=== PATIENT | female | born 1945 | race Hispanic/Latino ===

== ENCOUNTER 2024-07-27 17:38 | Emergency (ER) | payer MEDICARE ==
[~2024-07-27] VITALS: Ht 152.4 cm; Wt 66.7 kg
[~2024-07-27 17:38] MED LIST: ARICEPT5 MG PO; ASPIRIN81 MG PO; JARDIANCE10 MG PO; LIPITOR20 MG PO; LOSARTAN POTAS100 MG PO; LYRICA100 MG PO; VITAMIN D350 MCG
[2024-07-27 18:14] VITALS: TEMP 98.1
[2024-07-27 18:42] LABS: BASOPHILS % 0.5 % (0.0-1.0); EOSINOPHILS # (AUTO) 0.1 (0.0-0.4); EOSINOPHILS % 2.1 % (0.0-6.0); HEMATOCRIT 39.6 % (34.2-44.1); HEMOGLOBIN 12.1 g/dL (12.0-16.0); LYMPHOCYTES # (AUTO) 2.2 (1.0-3.2); LYMPHOCYTES % 38.8 % (18.0-39.1); MEAN CORPUSCULAR HEMOGLOBIN 26.7 pg (28-32); MEAN CORPUSCULAR HGB CONC 30.6 g/dL (31-35); MEAN CORPUSCULAR VOLUME 87.2 fL (81-99); MONOCYTES # (AUTO) 0.6 (0.2-0.8); MONOCYTES % 9.9 % (4.4-11.3); NEUTROPHILS # (AUTO) 2.8 (2.1-6.9); NEUTROPHILS % 48.5 % (38.7-80.0); PLATELET COUNT 165 x10e3/uL (140-360); RED BLOOD COUNT 4.54 x10e6/uL (3.6-5.1); RED CELL DISTRIBUTION WIDTH 14.1 % (11.7-14.4); WHITE BLOOD COUNT 5.78 x10e3/uL (4.8-10.8)
[2024-07-27 18:50] VITALS: RESP 18
[2024-07-27 19:03] LABS: ALBUMIN 3.5 g/dL (3.5-5.0); ALBUMIN/GLOBULIN RATIO 1.3 (0.8-2.0); ANION GAP 15.3 mmol/L (8-16); BILIRUBIN,TOTAL 0.5 mg/dL (0.2-1.2); CALCIUM 9.3 mg/dL (8.4-10.2); CREATININE, SERUM 1.77 mg/dL (0.57-1.11); POTASSIUM 4.3 mmol/L (3.5-5.1); TOTAL PROTEIN 6.3 g/dL (6.5-8.1)
[2024-07-27 19:26] LABS: CLARITY,URINE CLEAR (CLEAR); COLOR,URINE YELLOW (YELLOW)
[2024-07-27 19:27] LABS: BILIRUBIN,URINE NEGATIVE (NEGATIVE); GLUCOSE, URINE 500 (NEGATIVE); KETONES,URINE NEGATIVE (NEGATIVE); LEUKOCYTE ESTERASE ,URINE NEGATIVE (NEGATIVE); NITRITE,URINE NEGATIVE (NEGATIVE); PH,URINE 5.5 (5 - 7); PROTEIN,URINE DIPSTICK NEGATIVE (NEGATIVE); URINE UROBILINOGEN 0.2 mg/dL (0.2 - 1)
[2024-07-27 19:35] LABS: BACTERIA,URINE RARE /HPF; EPITHELIAL CELLS,URINE RARE /LPF; RBC,URINE 0-5 /HPF (0-5); WBC,URINE (MAN) 0-5 /HPF (0-5)
[2024-07-27 20:00] VITALS: PULSE 61
[2024-07-27] MEDS ORDERED: AUGMENTIN 500-1 EACH PO (20:13)
[2024-07-27 20:32] VITALS: BP 154/58; O2SAT 98
== END 2024-07-27 20:33 | disposition home or self-care (01) ==
LOC: ER 17:46
DX: N39.0 Urinary tract infection, site not specified (principal); Z85.53 Personal history of malignant neoplasm of renal pelvis
CPT/HCPCS: 36415; 80053; 81001; 85025; 87086; 99284

== ENCOUNTER 2024-07-30 09:36 | Inpatient (IN) | payer MEDICARE ==
[2024-07-27 14:18] LABS: BASOPHILS % 0.4 % (0.0-1.0); EOSINOPHILS # (AUTO) 0.1 (0.0-0.4); EOSINOPHILS % 1.8 % (0.0-6.0); HEMATOCRIT 43.3 % (34.2-44.1); LYMPHOCYTES # (AUTO) 2.5 (1.0-3.2); LYMPHOCYTES % 37.5 % (18.0-39.1); MEAN CORPUSCULAR HEMOGLOBIN 27.1 pg (28-32); MEAN CORPUSCULAR VOLUME 90.2 fL (81-99); MONOCYTES # (AUTO) 0.8 (0.2-0.8); MONOCYTES % 11.8 % (4.4-11.3); NEUTROPHILS # (AUTO) 3.2 (2.1-6.9); NEUTROPHILS % 48.4 % (38.7-80.0); PLATELET COUNT 181 x10e3/uL (140-360); RED CELL DISTRIBUTION WIDTH 14.1 % (11.7-14.4); WHITE BLOOD COUNT 6.69 x10e3/uL (4.8-10.8)
[2024-07-27 14:42] LABS: ALBUMIN 3.9 g/dL (3.5-5.0); ALBUMIN/GLOBULIN RATIO 1.3 (0.8-2.0); ANION GAP 19.6 mmol/L (8-16); BILIRUBIN,TOTAL 0.6 mg/dL (0.2-1.2); CALCIUM 10.3 mg/dL (8.4-10.2); CREATININE, SERUM 1.89 mg/dL (0.57-1.11); TOTAL PROTEIN 6.9 g/dL (6.5-8.1)
[2024-07-27 14:59] LABS: POTASSIUM 6.6 mmol/L (3.5-5.1)
[~2024-07-30] VITALS: Ht 154.9 cm; Wt 65.8 kg
[2024-07-30] VITALS (32 sets, daily range): BP systolic 95–124; BP diastolic 43–83; PULSE 46–108; RESP 9–25; TEMP 97.7–98.7; O2SAT 91–100
[~2024-07-30 09:36] MED LIST changes: +AUGMENTIN 500-1 EACH PO
[2024-07-30] MEDS: LACTATED RINGER'S 1,000 ML ONE (10:12)
[2024-07-30] MEDS: CEFAZOLIN SODIUM 2 GM ONE (10:12)
[2024-07-30] MEDS ORDERED: LIDOCAINE HCL 2% LOCAL INJ 5 ML SDV VIAL INJ ONE (10:42)
[2024-07-30] MEDS ORDERED: SEVOFLURANE INHAL SOLN 250 ML PEN BTL ONE (10:42)
[2024-07-30] MEDS ORDERED: ROCURONIUM BROMIDE 1 ML IV ONE ×2 (10:42→13:25)
[2024-07-30] MEDS ORDERED: PROPOFOL IV EMULSION 10 MG/ML 20 ML VIAL ONE (10:42)
[2024-07-30] MEDS ORDERED: ACETAMINOPHEN 1000 MG/100 ML 100 ML IV ONE (10:42)
[2024-07-30] MEDS ORDERED: FENTANYL CITRATE/PF 100MCG/2 ML INJ ONE (10:42)
[2024-07-30] MEDS ORDERED: PHENYLEPHRINE HCL 1% 10 MG/ML VIAL ONE (10:44)
[2024-07-30] MEDS ORDERED: SODIUM CHLORIDE 0.9% 100 ML ONE (10:44)
[2024-07-30] MEDS ORDERED: Morphine 10mg syringe 10 MG/ML INJ ONE (11:50)
[2024-07-30] MEDS ORDERED: ACETAMINOPHEN 1000 MG/100 ML IV PRN (12:15)
[2024-07-30] MEDS ORDERED: NALOXONE HCL INJ 0.4 MG/ML AMP IV PRN (12:15)
[2024-07-30] MEDS ORDERED: ONDANSETRON HCL INJ 2MG/ML 2ML 2 MG/ML VIAL IV PRN (12:15)
[2024-07-30] MEDS ORDERED: EPHEDRINE SULFATE INJ 50 MG/ML VIAL ONE (12:25)
[2024-07-30] MEDS ORDERED: DEXAMETHASONE SOD PHOS INJ 4 MG/ML SDV ONE (12:38)
[2024-07-30] MEDS ORDERED: FAMOTIDINE 20 MG/2 ML VIAL IV ONE (12:38)
[2024-07-30] MEDS ORDERED: KETAMINE 50MG/5ML SYR ONE (13:04)
[2024-07-30] MEDS ORDERED: SUGAMMADEX SODIUM 200 MG/2 ML VIAL IV ONE (13:24)
[2024-07-30] MEDS ORDERED: LACTATED RINGER'S 1,000 ML ONE (13:24)
[2024-07-30 14:49] LABS: BASOPHILS % 0.5 % (0.0-1.0); EOSINOPHILS # (AUTO) 0.1 (0.0-0.4); EOSINOPHILS % 0.8 % (0.0-6.0); HEMATOCRIT 34.7 % (34.2-44.1); HEMOGLOBIN 10.8 g/dL (12.0-16.0); LYMPHOCYTES # (AUTO) 1.8 (1.0-3.2); MEAN CORPUSCULAR HEMOGLOBIN 27.7 pg (28-32); MEAN CORPUSCULAR HGB CONC 31.1 g/dL (31-35); MONOCYTES # (AUTO) 0.2 (0.2-0.8); MONOCYTES % 2.9 % (4.4-11.3); NEUTROPHILS # (AUTO) 5.2 (2.1-6.9); PLATELET COUNT 166 x10e3/uL (140-360); RED CELL DISTRIBUTION WIDTH 14.1 % (11.7-14.4); WHITE BLOOD COUNT 7.32 x10e3/uL (4.8-10.8)
[2024-07-30] MEDS: MORPHINE SULFATE 1 MG/ML 30ML PCA IV PRN (15:41)
[2024-07-30 15:46] LABS: ANION GAP 15.1 mmol/L (8-16); CALCIUM 8.4 mg/dL (8.4-10.2); CREATININE, SERUM 1.41 mg/dL (0.57-1.11); POTASSIUM 4.1 mmol/L (3.5-5.1)
[2024-07-30] MEDS ORDERED: HYDRALAZINE HCL 20 MG/ML VIAL IV PRN (17:00)
[2024-07-30] MEDS: SODIUM CHLORIDE 0.9% 1000ML 1,000 ML IV SCH (17:00)
[2024-07-30] MEDS: DIPHENHYDRAMINE HCL INJ 50 MG/ML VIAL IM PRN (17:01)
[2024-07-30] MEDS: SODIUM CHLORIDE 0.9% 250ML IRRIG IR SCH (18:00)
[2024-07-31] VITALS (52 sets, daily range): BP systolic 89–123; BP diastolic 35–96; PULSE 45–74; RESP 9–20; TEMP 98.2–98.6; O2SAT 85–100
[2024-07-31 07:34] LABS: BASOPHILS % 0.1 % (0.0-1.0); HEMATOCRIT 33.7 % (34.2-44.1); HEMOGLOBIN 10.3 g/dL (12.0-16.0); LYMPHOCYTES # (AUTO) 0.7 (1.0-3.2); MEAN CORPUSCULAR HEMOGLOBIN 27.8 pg (28-32); MEAN CORPUSCULAR HGB CONC 30.6 g/dL (31-35); MEAN CORPUSCULAR VOLUME 91.1 fL (81-99); MONOCYTES # (AUTO) 0.7 (0.2-0.8); MONOCYTES % 6.9 % (4.4-11.3); NEUTROPHILS # (AUTO) 8.2 (2.1-6.9); NEUTROPHILS % 85.6 % (38.7-80.0); PLATELET COUNT 128 x10e3/uL (140-360); WHITE BLOOD COUNT 9.56 x10e3/uL (4.8-10.8)
[2024-07-31 08:03] LABS: ANION GAP 13.7 mmol/L (8-16); CALCIUM 8.1 mg/dL (8.4-10.2); CREATININE, SERUM 2.02 mg/dL (0.57-1.11); POTASSIUM 4.7 mmol/L (3.5-5.1)
[2024-07-31] MEDS: SODIUM CHLORIDE 0.9% 500ML 500 ML IV ONE (21:59)
[2024-08-01] VITALS (22 sets, daily range): BP systolic 106–145; BP diastolic 43–94; PULSE 48–74; RESP 11–20; TEMP 97.5–98.7; O2SAT 90–100
[2024-08-01 06:57] LABS: BASOPHILS % 0.1 % (0.0-1.0); HEMATOCRIT 29.3 % (34.2-44.1); HEMOGLOBIN 8.9 g/dL (12.0-16.0); LYMPHOCYTES # (AUTO) 1.3 (1.0-3.2); LYMPHOCYTES % 12.9 % (18.0-39.1); MEAN CORPUSCULAR HEMOGLOBIN 27.6 pg (28-32); MEAN CORPUSCULAR HGB CONC 30.4 g/dL (31-35); MEAN CORPUSCULAR VOLUME 90.7 fL (81-99); MONOCYTES # (AUTO) 0.7 (0.2-0.8); MONOCYTES % 7.3 % (4.4-11.3); NEUTROPHILS # (AUTO) 7.6 (2.1-6.9); NEUTROPHILS % 79.1 % (38.7-80.0); PLATELET COUNT 109 x10e3/uL (140-360); RED BLOOD COUNT 3.23 x10e6/uL (3.6-5.1); RED CELL DISTRIBUTION WIDTH 14.4 % (11.7-14.4); WHITE BLOOD COUNT 9.66 x10e3/uL (4.8-10.8)
[2024-08-01 07:34] LABS: ANION GAP 11.6 mmol/L (8-16); CALCIUM 8.1 mg/dL (8.4-10.2); CREATININE, SERUM 2.2 mg/dL (0.57-1.11); POTASSIUM 4.6 mmol/L (3.5-5.1)
[2024-08-02] VITALS (12 sets, daily range): BP systolic 96–158; BP diastolic 51–83; PULSE 52–106; RESP 12–21; TEMP 98.1–98.4; O2SAT 95–100
[2024-08-02] MEDS: ACETAMINOPHEN/CODEINE 300MG - 30MG TAB PO PRN (03:22)
[2024-08-02 07:08] LABS: BASOPHILS % 0.3 % (0.0-1.0); EOSINOPHILS % 0.1 % (0.0-6.0); HEMATOCRIT 32.3 % (34.2-44.1); HEMOGLOBIN 9.8 g/dL (12.0-16.0); LYMPHOCYTES # (AUTO) 0.9 (1.0-3.2); LYMPHOCYTES % 9.9 % (18.0-39.1); MEAN CORPUSCULAR HEMOGLOBIN 27.7 pg (28-32); MEAN CORPUSCULAR HGB CONC 30.3 g/dL (31-35); MEAN CORPUSCULAR VOLUME 91.2 fL (81-99); MONOCYTES # (AUTO) 0.7 (0.2-0.8); MONOCYTES % 7.7 % (4.4-11.3); NEUTROPHILS # (AUTO) 7.8 (2.1-6.9); NEUTROPHILS % 81.5 % (38.7-80.0); PLATELET COUNT 103 x10e3/uL (140-360); RED BLOOD COUNT 3.54 x10e6/uL (3.6-5.1); RED CELL DISTRIBUTION WIDTH 14.3 % (11.7-14.4); WHITE BLOOD COUNT 9.52 x10e3/uL (4.8-10.8)
[2024-08-02 07:42] LABS: ANION GAP 13.7 mmol/L (8-16); CALCIUM 8.2 mg/dL (8.4-10.2); CREATININE, SERUM 2.22 mg/dL (0.57-1.11); POTASSIUM 4.7 mmol/L (3.5-5.1)
[2024-08-02] MEDS: SENNA-S TABLET PO SCH (07:50)
[2024-08-03] VITALS (9 sets, daily range): BP systolic 131–185; BP diastolic 58–87; PULSE 59–83; RESP 12–22; TEMP 98–98.3; O2SAT 90–100
[2024-08-03 05:39] LABS: BASOPHILS % 0.1 % (0.0-1.0); EOSINOPHILS % 0.4 % (0.0-6.0); HEMATOCRIT 31.4 % (34.2-44.1); HEMOGLOBIN 9.9 g/dL (12.0-16.0); LYMPHOCYTES # (AUTO) 0.9 (1.0-3.2); LYMPHOCYTES % 12.3 % (18.0-39.1); MEAN CORPUSCULAR HGB CONC 31.5 g/dL (31-35); MONOCYTES # (AUTO) 0.7 (0.2-0.8); NEUTROPHILS # (AUTO) 5.5 (2.1-6.9); NEUTROPHILS % 76.9 % (38.7-80.0); PLATELET COUNT 115 x10e3/uL (140-360); RED BLOOD COUNT 3.53 x10e6/uL (3.6-5.1)
[2024-08-03 06:03] LABS: ANION GAP 16.4 mmol/L (8-16); CALCIUM 8.3 mg/dL (8.4-10.2); CREATININE, SERUM 2.09 mg/dL (0.57-1.11); POTASSIUM 4.4 mmol/L (3.5-5.1)
[2024-08-03] MEDS ORDERED: BISACODYL 10 MG SUPP PR PRN (17:30)
[2024-08-03] MEDS: BISACODYL 10 MG SUPP PR ONE (18:07)
[2024-08-03] MEDS: BISACODYL 10 MG SUPP PR STA (18:07)
[2024-08-03] MEDS: PSYLLIUM 6GM PACKET PO SCH (18:15)
[2024-08-03] MEDS: ACETAMINOPHEN 1000 MG/100 ML IV PRN (20:41)
[2024-08-04] VITALS (9 sets, daily range): BP systolic 127–170; BP diastolic 69–82; PULSE 61–74; RESP 18–22; TEMP 97.5–98.5; O2SAT 92–98
[2024-08-04] MEDS: HYDRALAZINE HCL 20 MG/ML VIAL IV PRN (07:42)
[2024-08-04 08:13] LABS: BASOPHILS % 0.1 % (0.0-1.0); EOSINOPHILS % 0.1 % (0.0-6.0); HEMOGLOBIN 10.2 g/dL (12.0-16.0); LYMPHOCYTES # (AUTO) 1.1 (1.0-3.2); LYMPHOCYTES % 11.5 % (18.0-39.1); MEAN CORPUSCULAR HEMOGLOBIN 26.8 pg (28-32); MEAN CORPUSCULAR HGB CONC 30.9 g/dL (31-35); MEAN CORPUSCULAR VOLUME 86.8 fL (81-99); MONOCYTES # (AUTO) 0.7 (0.2-0.8); MONOCYTES % 7.9 % (4.4-11.3); NEUTROPHILS # (AUTO) 7.4 (2.1-6.9); NEUTROPHILS % 79.9 % (38.7-80.0); PLATELET COUNT 143 x10e3/uL (140-360); RED CELL DISTRIBUTION WIDTH 14.5 % (11.7-14.4); WHITE BLOOD COUNT 9.21 x10e3/uL (4.8-10.8)
[2024-08-04 08:40] LABS: ANION GAP 16.4 mmol/L (8-16); CALCIUM 8.6 mg/dL (8.4-10.2); CREATININE, SERUM 1.91 mg/dL (0.57-1.11); POTASSIUM 4.4 mmol/L (3.5-5.1)
[2024-08-04] MEDS: METOPROLOL TARTRATE 25 MG TAB PO SCH (10:22)
[2024-08-05] VITALS (8 sets, daily range): BP systolic 135–163; BP diastolic 51–64; PULSE 56–65; RESP 16–18; TEMP 97.5–98.4; O2SAT 92–100
[2024-08-06 05:45] VITALS: BP_SYST 65; PULSE 57; RESP 18; TEMP 97.3; O2SAT 98
[2024-08-06 08:55] VITALS: BP 138/54; PULSE 76; RESP 20; TEMP 97.9; O2SAT 100
[2024-08-06 09:00] VITALS: BP 138/54; PULSE 76; RESP 20; TEMP 97.9; O2SAT 100
[2024-08-06 09:24] VITALS: BP 138/54; PULSE 76; RESP 20; TEMP 97.9; O2SAT 100
[2024-08-06] MEDS ORDERED: Psyllium PO (10:37)
[2024-08-06] MEDS ORDERED: SENNA S TABLET1 EACH PO (10:37)
[2024-08-06] MEDS ORDERED: Acetaminophen/Codeine 300-30MG PO (10:37)
[2024-08-06] MEDS ORDERED: LOPRESSOR25 MG PO (10:37)
[2024-08-06] MEDS ORDERED: CEPHALEXIN500 MG PO (10:37)
[2024-08-06] MEDS ORDERED: ACETAMINOPHEN-1 EAC4 PO (10:40)
[2024-08-06] MEDS ORDERED: TYLENOL325 MG PO (10:40)
[2024-08-06 11:50] VITALS: PULSE 49; RESP 18; O2SAT 95
[2024-08-06 12:20] VITALS: BP 125/54; PULSE 51; RESP 20; TEMP 97.4; O2SAT 100
== END 2024-08-06 16:00 | disposition home health service (06) | DRG 657 ==
LOC: OR 09:36 → PACU V 14:14 → ICU 15:34 → MED/SURG 08-02 08:48
PROVIDERS: ADMIT Internal Medicine; ATTEND Internal Medicine
PROC: 0TT00ZZ Resection of Right Kidney, Open Approach (ICD-10-PCS; principal; 2024-07-30 11:50)
DX: C64.1 Malignant neoplasm of right kidney, except renal pelvis (principal); J93.83 Other pneumothorax; E11.42 Type 2 diabetes mellitus with diabetic polyneuropathy; I12.9 Hypertensive chronic kidney disease with stage 1 through stage 4 chronic kidney disease, or unspecified chronic kidney disease; E87.5 Hyperkalemia; E11.22 Type 2 diabetes mellitus with diabetic chronic kidney disease; N18.30 Chronic kidney disease, stage 3 unspecified; E78.5 Hyperlipidemia, unspecified; Z79.82 Long term (current) use of aspirin; Z79.84 Long term (current) use of oral hypoglycemic drugs; D63.1 Anemia in chronic kidney disease
CPT/HCPCS: 36415; 36568; 71045; 71046; 80048; 80053; 82948; 83735; 85025; 86850; 86900; 86920; 88307; 93005; 94799; 99252; J0360; J0690; J1100; J1200; J2003; J2270; J2371; J2405; J2470; J7030; J7040; J7050